=== PATIENT | male | born 1930 | race Caucasian/White ===

== ENCOUNTER → 2016-11-14 | Outpatient (CLI) | payer MEDICARE, OTHER | LOC: LAB 13:54 | PROVIDERS: Emergency Medicine | DX: E11.9 Type 2 diabetes mellitus without complications (principal); E78.2 Mixed hyperlipidemia; E53.8 Deficiency of other specified B group vitamins; M54.5 Low back pain; R25.2 Cramp and spasm; M47.896 Other spondylosis, lumbar region | CPT/HCPCS: 36415; 72110; 80053; 80061; 82607; 83036; 83704 ==

== ENCOUNTER 2016-12-12 19:01 | Emergency (ER) | payer MEDICARE, OTHER ==
[2016-12-12 20:54] LABS: HEMOGLOBIN 9.3 gm/dl (14.0-17.5); RED BLOOD COUNT 4.14 M/UL (4.20-5.50); WHITE BLOOD COUNT 11.8 K/UL (4.5-11.0)
== END 2016-12-12 23:58 | disposition home or self-care (01) ==
LOC: ER1 19:01
PROVIDERS: Family Medicine
DX: R55 Syncope and collapse (principal); S00.01XA Abrasion of scalp, initial encounter; I10 Essential (primary) hypertension; D64.9 Anemia, unspecified; N28.9 Disorder of kidney and ureter, unspecified; I25.2 Old myocardial infarction; F17.200 Nicotine dependence, unspecified, uncomplicated; Z79.82 Long term (current) use of aspirin; Z95.5 Presence of coronary angioplasty implant and graft; Z79.84 Long term (current) use of oral hypoglycemic drugs; Z79.899 Other long term (current) drug therapy; W19.XXXA Unspecified fall, initial encounter; Y93.H2 Activity, gardening and landscaping; Y92.007 Garden or yard of unspecified non-institutional (private) residence as the place of occurrence of the external cause
CPT/HCPCS: 36415; 70450; 71010; 80053; 81001; 82550; 82553; 82962; 83874; 84484; 85025; 93005; 99284

== ENCOUNTER 2020-07-03 21:21 | Emergency (ER) | payer MEDICARE, OTHER ==
[2020-07-03 22:10] LABS: HEMOGLOBIN 8.5 gm/dl (14.0-17.5); RED BLOOD COUNT 3.11 M/UL (4.20-5.50); WHITE BLOOD COUNT 19.4 K/UL (4.5-11.0)
[2020-07-03 22:39] LABS: BUN/CREATININE RATIO 20 (0-10)
[2020-07-04] MEDS ORDERED: NITROSTAT 0.40.4 MG SL ×2 (03:03→03:15)
== END 2020-07-04 01:40 | disposition home or self-care (01) ==
LOC: ER1 21:21
PROVIDERS: Physician Assistant
DX: I25.10 Atherosclerotic heart disease of native coronary artery without angina pectoris (principal); D72.829 Elevated white blood cell count, unspecified; I44.0 Atrioventricular block, first degree; F17.290 Nicotine dependence, other tobacco product, uncomplicated; Z85.528 Personal history of other malignant neoplasm of kidney; Z90.5 Acquired absence of kidney; Z98.890 Other specified postprocedural states; Z53.20 Procedure and treatment not carried out because of patient's decision for unspecified reasons; Z20.822 Contact with and (suspected) exposure to COVID-19
CPT/HCPCS: 71045; 80053; 82550; 82553; 83874; 83880; 84484; 85025; 93005; 99285; U0002

== ENCOUNTER 2020-07-15 16:10 | Emergency (ER) | payer MEDICARE, OTHER ==
[~2020-07-15 16:10] MED LIST: NITROSTAT 0.40.4 MG SL
[2020-07-15 18:30] LABS: RED BLOOD COUNT 2.91 M/UL (4.20-5.50); WHITE BLOOD COUNT 17.6 K/UL (4.5-11.0)
[2020-07-15 18:49] LABS: BUN/CREATININE RATIO 24 (0-10)
== END 2020-07-16 00:30 | disposition home or self-care (01) ==
LOC: ER1 16:10
PROVIDERS: Family Medicine
DX: R07.9 Chest pain, unspecified (principal); D64.9 Anemia, unspecified; R00.1 Bradycardia, unspecified; E11.9 Type 2 diabetes mellitus without complications; F17.200 Nicotine dependence, unspecified, uncomplicated; Z90.5 Acquired absence of kidney; Z95.5 Presence of coronary angioplasty implant and graft; Z53.20 Procedure and treatment not carried out because of patient's decision for unspecified reasons
CPT/HCPCS: 71045; 80048; 80053; 81001; 82550; 82553; 83605; 83874; 84484; 85025; 85379; 85610; 87040; 93005; 96365; 99285; J0696; J7030; Q9967

== ENCOUNTER 2020-07-16 12:06 | Emergency (ER) | payer MEDICARE, OTHER ==
[2020-07-16 14:06] LABS: HEMOGLOBIN 9.2 gm/dl (14.0-17.5)
[2020-07-16 14:09] LABS: RED BLOOD COUNT 3.41 M/UL (4.20-5.50); WHITE BLOOD COUNT 24.8 K/UL (4.5-11.0)
== END 2020-07-16 21:00 | disposition home or self-care (01) ==
LOC: ER1 12:06
PROVIDERS: Physician Assistant Medical
DX: R07.89 Other chest pain (principal); D64.9 Anemia, unspecified; C95.90 Leukemia, unspecified not having achieved remission; E27.8 Other specified disorders of adrenal gland; I44.0 Atrioventricular block, first degree; R05 Cough; I25.2 Old myocardial infarction; I25.10 Atherosclerotic heart disease of native coronary artery without angina pectoris; E11.9 Type 2 diabetes mellitus without complications; F17.290 Nicotine dependence, other tobacco product, uncomplicated; Z90.5 Acquired absence of kidney; Z79.82 Long term (current) use of aspirin
CPT/HCPCS: 80053; 81001; 82550; 82553; 83605; 83874; 84484; 85025; 85610; 87040; 93005; 96365; 99285; J0696; Q9967

== ENCOUNTER 2020-11-19 19:24 | Emergency (ER) | payer MEDICARE, OTHER ==
[2020-11-19 20:19] LABS: HEMOGLOBIN 9.5 gm/dl (14.0-17.5); RED BLOOD COUNT 3.21 M/UL (4.20-5.50); WHITE BLOOD COUNT 13.8 K/UL (4.5-11.0)
== END 2020-11-19 21:32 | disposition home or self-care (01) ==
LOC: ER1 19:24
PROVIDERS: Preventive Medicine Occupational Medicine
DX: R55 Syncope and collapse (principal); E86.0 Dehydration; F17.210 Nicotine dependence, cigarettes, uncomplicated
CPT/HCPCS: 70450; 71045; 80053; 83690; 85025; 86140; 93005; 99285

== ENCOUNTER → 2021-04-08 | Outpatient (CLI) | payer MEDICARE, OTHER | LOC: KOH-I 08:45 | DX: D50.9 Iron deficiency anemia, unspecified (principal); K90.9 Intestinal malabsorption, unspecified; R16.1 Splenomegaly, not elsewhere classified | CPT/HCPCS: 76705 ==